=== PATIENT | male | born 2000 | race Caucasian/White ===

== ENCOUNTER 2024-08-25 06:03 | Day surgery (SDC) | payer OTHER ==
[2024-08-20 08:32] VITALS: BMI 22.9
[2024-08-25] MEDS ORDERED: Bupivacaine HCl 0.5%/Epinephrine 1:200,000/PF 30 ml Vial ONE (07:40)
[2024-08-25] MEDS ORDERED: Rocuronium Bromide 10 MG/ML (10ML VIAL) ONE (08:11)
[2024-08-25] MEDS ORDERED: SUGAMMADEX SODIUM 200 MG/2 ML VIAL ONE (08:11)
[2024-08-25] MEDS ORDERED: Lidocaine 2% PF 5 ML VIAL ONE (08:11)
[2024-08-25] MEDS ORDERED: Dexamethasone 20 MG/5 ML VIAL ONE (08:11)
[2024-08-25] MEDS ORDERED: fentaNYL 50 mcg/mL 1 mL Vial ONE ×3 (08:11→09:59)
[2024-08-25] MEDS ORDERED: Ondansetron PF 4 MG/2 ML Vial ONE (08:11)
[2024-08-25] MEDS ORDERED: PROPOFOL 20 ML ONE (08:11)
[2024-08-25] MEDS ORDERED: Sevoflurane 250 ML INH ANEST BOTTLE ONE (08:15)
[2024-08-25] MEDS ORDERED: CEFAZOLIN 2 GM VIAL ONE (08:18)
[2024-08-25] MEDS ORDERED: PHENYLEPHRINE-NS 100 MCG/ML 10 ML SYRINGE ONE (08:40)
[2024-08-25] MEDS ORDERED: HYDROmorphone 0.5 MG/0.5 ML SYRINGE ONE (10:16)
== END 2024-08-25 11:10 | disposition home or self-care (01) ==
LOC: CSHSDC 06:03
PROVIDERS: ATTEND Surgery
PROC: 0HX8XZZ Transfer Buttock Skin, External Approach (ICD-10-PCS; principal; 2024-08-25)
DX: L05.91 Pilonidal cyst without abscess (principal)
CPT/HCPCS: 88304; J1100; J2405; J2704; J3010